=== PATIENT | male | born 1995 | race Caucasian/White ===

== ENCOUNTER 2018-09-01 06:57 | Emergency (ER) | payer OTHER ==
[~2018-09-01 06:57] MED LIST: ALBUTEROL0.09 MG/A2 IH; ALBUTEROL0.09 MG/A2 INH; ALLOPURINOL100 MG PO; ANUSOL-HC25 MG RC; ATARAX25 MG PO; BENADRYL12.5 MG/5 PO; BENADRYL25 MG PO; BENTYL10 MG PO; CLEOCIN150 MG PO; DIFLUCAN150 MG PO; DOXYCYCLINE100 M2 PO; EPI-PEN JR0.5 MG/ML MR; EPIPEN 2-PAK1 MG/ML MR; EPIPEN JR 20.5 MG/ML MR; FLEXERIL10 MG PO; HYDROCODONE BIT1 T11 PO; IBU-6600 MG PO; KETOROLAC10 MG PO; LIDEX 0.05% GEL60 GM PO; LOMOTIL 0.025 M1 TAB PO; MEDROL DOSEPAK4 MG PO; MILLIPRED5 MG PO; MOTRIN400 MG PO; MOTRIN600 MG PO; MOTRIN800 MG PO; NAPROXEN220 MG PO; PHENERGAN12.5 M1 PO; PREDNICOT20 MG PO; PREVACID30 M1 PO; PRILOSEC40 MG PO; ROBITUSSIN-AC480 ML PO; SEPTRA DS 800 M1 TAB PO; SINGULAIR10 M1 PO; SINGULAIR10 MG PO; TOPAMAX25 M1 PO; TOPAMAX25 M3 PO; TORADOL10 MG PO; TORADOL60 MG/2 ML PO; TRAMADOL HCL50 MG PO; TRAMADOL50 MG PO; TYLENOL W/CODEI1 TA2 PO; ULTRAM50 MG PO; VITAMIN D5000 UNIT PO; ZANTAC 150150 MG PO; ZANTAC150 MG PO; ZITHROMAX Z PA250 MG PO; ZITHROMAX250 MG PO; ZOFRAN ODT4 MG SL; Zofran4 MG PO
[2018-09-01] MEDS ORDERED: ZOFRAN4 MG PO (07:35)
== END 2018-09-01 07:35 | disposition home or self-care (01) ==
LOC: ED 06:57
DX: R11.2 Nausea with vomiting, unspecified (principal); K30 Functional dyspepsia; Z88.0 Allergy status to penicillin; Z91.013 Allergy to seafood; Z91.018 Allergy to other foods; Z91.041 Radiographic dye allergy status; Z91.030 Bee allergy status; Z79.899 Other long term (current) drug therapy

== ENCOUNTER 2019-03-16 12:39 | Emergency (ER) | payer OTHER ==
[~2019-03-16] VITALS: Ht 182.8 cm; Wt 102.1 kg
[~2019-03-16 12:39] MED LIST changes: +ZOFRAN4 MG PO
[2019-03-16 13:17] LABS: BASO % 0.5 % (0.0-1.0); EOS # 0.2 10*3/uL (0.0-0.4); EOS % 2.5 % (1.0-4.0); HEMATOCRIT 47.2 % (42.0-52.0); HEMOGLOBIN 15.7 g/dl (14.0-18.0); LYMPH # 2.7 10*3/uL (1.3-4.4); LYMPH % 33.8 % (27.0-41.0); MEAN CELL VOLUME 90.9 fl (80.0-94.0); MEAN CORPUSCULAR HGB 30.3 pg (27.0-31.0); MEAN CORPUSCULAR HGB CONC 33.3 g/dl (33.0-37.0); MEAN PLATELET VOLUME 11.9 fl (9.6-12.3); MONO # 0.6 10*3/uL (0.1-1.0); MONO % 7.2 % (3.0-9.0); NEUT # 4.5 10*3/uL (2.3-7.9); NEUT % 55.8 % (47.0-73.0); PLATELET COUNT AUTOMATED 250 10*3/uL (130-400); RED BLOOD COUNT 5.19 10*6/uL (4.50-5.90); RED CELL DISTRI WIDTH 12.1 % (0-14.5); WHITE BLOOD COUNT 8.1 10*3/uL (4.8-10.8)
[2019-03-16 13:34] LABS: ALBUMIN 4.3 gm/dl (3.1-4.5); ALKALINE PHOSPHATASE 65 U/L (45-117); BUN 16 mg/dl (7-24); CHLORIDE 105 mmol/L (98-107); CREATININE 1.06 mg/dL (0.70-1.30); LIPASE 88 U/L (73-393); POTASSIUM 3.8 mmol/L (3.5-5.1); SGOT/AST 14 IU/L (3-35); SGPT/ALT 25 U/L (12-78); SODIUM 139 mmol/L (136-145); TOTAL PROTEIN 7.4 gm/dL (6.4-8.2)
[2019-03-16] MEDS ORDERED: ZOFRAN4 MG PO (13:50)
== END 2019-03-16 13:54 | disposition home or self-care (01) ==
LOC: ED 12:39
PROVIDERS: Nurse Practitioner Family
DX: B34.9 Viral infection, unspecified (principal); J02.9 Acute pharyngitis, unspecified; H92.03 Otalgia, bilateral; R09.89 Other specified symptoms and signs involving the circulatory and respiratory systems; R53.1 Weakness; R11.0 Nausea; R10.9 Unspecified abdominal pain; Z79.899 Other long term (current) drug therapy; Z91.030 Bee allergy status; Z91.041 Radiographic dye allergy status; Z88.0 Allergy status to penicillin; Z91.013 Allergy to seafood; Z91.018 Allergy to other foods

== ENCOUNTER 2019-04-04 12:36 | Emergency (ER) | payer OTHER ==
[~2019-04-04] VITALS: Ht 182.8 cm; Wt 100.2 kg
[2019-04-04] MEDS ORDERED: LEVAQUIN750 M1 PO (13:10)
[2019-04-04] MEDS ORDERED: CLARITIN-D 121 EACH PO (13:10)
== END 2019-04-04 13:16 | disposition home or self-care (01) ==
LOC: ED 12:36
DX: J32.9 Chronic sinusitis, unspecified (principal); Z91.030 Bee allergy status; Z91.041 Radiographic dye allergy status; Z88.0 Allergy status to penicillin; Z91.013 Allergy to seafood; Z91.018 Allergy to other foods; Z79.899 Other long term (current) drug therapy

== ENCOUNTER 2020-01-23 12:10 | Emergency (ER) | payer OTHER ==
[~2020-01-23] VITALS: Ht 182.8 cm; Wt 104.3 kg
[~2020-01-23 12:10] MED LIST changes: +CLARITIN-D 121 EACH PO; +LEVAQUIN750 M1 PO
[2020-01-23 13:12] LABS: BASO % 0.4 % (0.0-1.0); EOS # 0.1 10*3/uL (0.0-0.4); EOS % 0.7 % (1.0-4.0); HEMATOCRIT 46.2 % (42.0-52.0); LYMPH # 2.8 10*3/uL (1.3-4.4); LYMPH % 26.2 % (27.0-41.0); MEAN CORPUSCULAR HGB 29.9 pg (27.0-31.0); MEAN CORPUSCULAR HGB CONC 33.5 g/dl (33.0-37.0); MEAN PLATELET VOLUME 11.1 fl (9.6-12.3); MONO # 0.9 10*3/uL (0.1-1.0); MONO % 8.1 % (3.0-9.0); NEUT # 6.8 10*3/uL (2.3-7.9); NEUT % 64.3 % (47.0-73.0); PLATELET COUNT AUTOMATED 280 10*3/uL (130-400); RED BLOOD COUNT 5.19 10*6/uL (4.50-5.90); WHITE BLOOD COUNT 10.6 10*3/uL (4.8-10.8)
[2020-01-23 13:29] LABS: ALBUMIN 4.3 gm/dl (3.1-4.5); ALKALINE PHOSPHATASE 70 U/L (45-117); BUN 17 mg/dl (7-24); CHLORIDE 107 mmol/L (98-107); CREATININE 0.82 mg/dL (0.70-1.30); LIPASE 60 U/L (73-393); POTASSIUM 4.2 mmol/L (3.5-5.1); SGOT/AST 22 IU/L (3-35); SGPT/ALT 43 U/L (12-78); SODIUM 139 mmol/L (136-145); TOTAL PROTEIN 7.5 gm/dL (6.4-8.2)
== END 2020-01-23 17:00 | disposition home or self-care (01) ==
LOC: ED 12:10
PROVIDERS: Emergency Medicine
DX: K29.70 Gastritis, unspecified, without bleeding (principal); K21.9 Gastro-esophageal reflux disease without esophagitis; Z91.030 Bee allergy status; Z91.041 Radiographic dye allergy status; Z88.0 Allergy status to penicillin; Z91.013 Allergy to seafood; Z91.018 Allergy to other foods; Z79.899 Other long term (current) drug therapy

== ENCOUNTER 2020-03-16 12:07 | Emergency (ER) | payer OTHER ==
[~2020-03-16] VITALS: Ht 779.7 cm; Wt 106.6 kg
[2020-03-16] MEDS ORDERED: Motrin,Rufen800 MG PO (14:25)
== END 2020-03-16 14:36 | disposition home or self-care (01) ==
LOC: ED 12:07
DX: S66.912A Strain of unspecified muscle, fascia and tendon at wrist and hand level, left hand, initial encounter (principal); Z91.030 Bee allergy status; Z91.041 Radiographic dye allergy status; Z88.0 Allergy status to penicillin; Z91.013 Allergy to seafood; Z91.018 Allergy to other foods; Z79.899 Other long term (current) drug therapy; X58.XXXA Exposure to other specified factors, initial encounter; Y93.89 Activity, other specified; Y92.89 Other specified places as the place of occurrence of the external cause; Y99.8 Other external cause status

== ENCOUNTER → 2020-03-26 | Outpatient (CLI) | payer OTHER ==
[~2020-03-26] MED LIST changes: -ALLOPURINOL100 MG PO; +BENTYL PO; +CLARITIN10 MG PO; +Motrin,Rufen800 MG PO; +ZYLOPRIM300 MG PO
--- NOTE | 2020-03-26 09:45 | NUR ---
INFORMED CONSENT OBTAINED FOR STANDARD GXT WITH DR. ABBOTT. RESTING EKG NSR WITH A SUPINE HR OF 65 WITH BP OF 122/80 AND HR OF 67 WITH BP OF 126/78. PT COMPLETED 9:00 OF A YVONNE PROTOCOL WITH COMPLETION OF STAGE III AT 3.4 MPH AND 14% GRADE. REACHED A PEAK HR OF 172 WHICH IS 86% OF PREDICTED MAX AND A PEAK BP OF 190/60. TEST TERMINATED BECAUSE OF FATIGUE. HAD NO EKG CHANGES. IN STAGE II DEVELOPED "SHARP" CENTRAL CHEST DISCOMFORT THAT WAS A 4 ON PAIN SCALE. IN STAGE III DECREASED TO A 2 ON PAIN SCALE. CHEST DISCOMFORT RELIEVED AT 3:00 RECOVERY. HAS AN AVERAGE EXERCISE TOLERANCE. LAST RECOVERY HR OF 100 WITH BP OF 128/74. IV DISCONTINUED AND DISCHARGED IN STABLE CONDITION.
== END | disposition home or self-care (01) ==
LOC: CARD 00:07
PROVIDERS: ATTEND Internal Medicine Cardiovascular Disease
DX: R07.2 Precordial pain (principal)

== ENCOUNTER 2020-10-08 21:28 | Emergency (ER) | payer OTHER ==
[~2020-10-08] VITALS: Ht 182.8 cm; Wt 108.9 kg
[2020-10-08 23:18] LABS: BASO # 0.1 10*3/uL (0.0-0.1); BASO % 0.4 % (0.0-1.0); EOS # 0.4 10*3/uL (0.0-0.4); EOS % 3.3 % (1.0-4.0); HEMATOCRIT 44.5 % (42.0-52.0); LYMPH # 4.2 10*3/uL (1.3-4.4); LYMPH % 34.9 % (27.0-41.0); MEAN CORPUSCULAR HGB CONC 33.7 g/dl (33.0-37.0); MEAN PLATELET VOLUME 11.3 fl (9.6-12.3); MONO % 8.6 % (3.0-9.0); NEUT # 6.3 10*3/uL (2.3-7.9); NEUT % 52.5 % (47.0-73.0); PLATELET COUNT AUTOMATED 314 10*3/uL (130-400); RED CELL DISTRI WIDTH 12.3 % (0-14.5); WHITE BLOOD COUNT 11.9 10*3/uL (4.8-10.8)
[2020-10-08 23:32] LABS: ALBUMIN 3.8 gm/dl (3.1-4.5); ALKALINE PHOSPHATASE 64 U/L (45-117); BUN 15 mg/dl (7-24); CHLORIDE 105 mmol/L (98-107); CREATININE 0.81 mg/dL (0.70-1.30); LIPASE 104 U/L (73-393); POTASSIUM 3.9 mmol/L (3.5-5.1); SGOT/AST 13 IU/L (3-35); SGPT/ALT 34 U/L (12-78); SODIUM 141 mmol/L (136-145)
[2020-10-09] MEDS ORDERED: TYLENOL325 M1 PO (12:01)
[2020-10-09] MEDS ORDERED: IBU800 MG PO (12:01)
== END 2020-10-09 00:16 | disposition home or self-care (01) ==
LOC: ED 21:28
PROVIDERS: Emergency Medicine
DX: R51.9 Headache, unspecified (principal); R11.2 Nausea with vomiting, unspecified; J45.909 Unspecified asthma, uncomplicated; K21.9 Gastro-esophageal reflux disease without esophagitis; Z90.49 Acquired absence of other specified parts of digestive tract; Z91.030 Bee allergy status; Z91.041 Radiographic dye allergy status; Z88.0 Allergy status to penicillin; Z91.013 Allergy to seafood; Z79.899 Other long term (current) drug therapy

== ENCOUNTER 2020-12-20 19:23 | Emergency (ER) | payer OTHER ==
[~2020-12-20] VITALS: Ht 182.8 cm; Wt 117.9 kg
[~2020-12-20 19:23] MED LIST changes: +IBU800 MG PO; +TYLENOL325 M1 PO
== END 2020-12-20 19:56 | disposition home or self-care (01) ==
LOC: ED 19:23
DX: M79.605 Pain in left leg (principal); R10.9 Unspecified abdominal pain; M54.5 Low back pain; Z91.030 Bee allergy status; Z91.041 Radiographic dye allergy status; Z88.0 Allergy status to penicillin; Z91.013 Allergy to seafood; Z91.018 Allergy to other foods; Z79.899 Other long term (current) drug therapy; Z96.22 Myringotomy tube(s) status; Z90.89 Acquired absence of other organs

== ENCOUNTER → 2021-04-09 | Outpatient (CLI) | payer OTHER | END | disposition home or self-care (01) | LOC: COVID19 16:37 | PROVIDERS: ATTEND Family Medicine | DX: Z11.52 Encounter for screening for COVID-19 (principal) ==

== ENCOUNTER 2021-11-12 04:32 | Emergency (ER) | payer OTHER ==
[~2021-11-12] VITALS: Ht 177.8 cm; Wt 105.2 kg
[~2021-11-12 04:32] MED LIST changes: +COLACE100 MG PO; +CYCLOBENZAPRINE10 MG PO; +DICYCLOMINE HCL10 MG PO; +HYDROCODONE-AC1 EAC1 PO; +LEVOFLOXACIN750 M2 PO; +METRONIDAZOLE500 M1 PO; +ONDANSETRON HYDR4 MG PO
[2021-11-12 04:58] LABS: BASO % 0.4 % (0.0-1.0); EOS # 0.2 10*3/uL (0.0-0.4); EOS % 1.9 % (1.0-4.0); HEMATOCRIT 43.7 % (42.0-52.0); LYMPH % 40.3 % (27.0-41.0); MEAN CELL VOLUME 87.1 fl (80.0-94.0); MEAN CORPUSCULAR HGB 29.5 pg (27.0-31.0); MEAN CORPUSCULAR HGB CONC 33.9 g/dl (33.0-37.0); MEAN PLATELET VOLUME 10.4 fl (9.6-12.3); MONO # 0.8 10*3/uL (0.1-1.0); MONO % 8.1 % (3.0-9.0); NEUT # 4.8 10*3/uL (2.3-7.9); NEUT % 48.2 % (47.0-73.0); PLATELET COUNT AUTOMATED 338 10*3/uL (130-400); RED BLOOD COUNT 5.02 10*6/uL (4.50-5.90); RED CELL DISTRI WIDTH 12.3 % (0-14.5); WHITE BLOOD COUNT 9.9 10*3/uL (4.8-10.8)
[2021-11-12 05:15] LABS: BUN 11 mg/dl (7-24); CHLORIDE 106 mmol/L (98-107); CREATININE 0.73 mg/dL (0.70-1.30); POTASSIUM 3.7 mmol/L (3.5-5.1); SODIUM 139 mmol/L (136-145)
[2021-11-12] MEDS ORDERED: METHOCARBAMOL500 M1 PO (05:30)
== END 2021-11-12 05:41 | disposition home or self-care (01) ==
LOC: ED 04:32
PROVIDERS: Internal Medicine
DX: S39.011A Strain of muscle, fascia and tendon of abdomen, initial encounter (principal); Z91.030 Bee allergy status; Z88.0 Allergy status to penicillin; Z91.013 Allergy to seafood; Z91.018 Allergy to other foods; Z91.041 Radiographic dye allergy status; Z79.899 Other long term (current) drug therapy; Z90.49 Acquired absence of other specified parts of digestive tract; Z98.890 Other specified postprocedural states; X58.XXXA Exposure to other specified factors, initial encounter; Y93.89 Activity, other specified; Y92.89 Other specified places as the place of occurrence of the external cause; Y99.8 Other external cause status

== ENCOUNTER 2022-02-07 08:39 | Emergency (ER) | payer OTHER ==
[~2022-02-07] VITALS: Ht 182.8 cm; Wt 111.1 kg
[~2022-02-07 08:39] MED LIST changes: +METHOCARBAMOL500 M1 PO
[2022-02-07] MEDS ORDERED: PREDNISONE10 MG PO ×2 (09:02)
== END 2022-02-07 09:22 | disposition home or self-care (01) ==
LOC: ED 08:39
DX: M94.0 Chondrocostal junction syndrome [Tietze] (principal); Z91.030 Bee allergy status; Z91.041 Radiographic dye allergy status; Z91.013 Allergy to seafood; Z91.018 Allergy to other foods; Z88.0 Allergy status to penicillin; Z79.899 Other long term (current) drug therapy; Z90.89 Acquired absence of other organs; Z90.49 Acquired absence of other specified parts of digestive tract

== ENCOUNTER 2022-02-25 17:14 | Emergency (ER) | payer OTHER ==
[~2022-02-25] VITALS: Ht 182.8 cm; Wt 111.1 kg
[~2022-02-25 17:14] MED LIST changes: +PREDNISONE10 MG PO
[2022-02-25 18:10] LABS: BASO # 0.1 10*3/uL (0.0-0.1); BASO % 0.6 % (0.0-1.0); EOS # 0.3 10*3/uL (0.0-0.4); EOS % 2.6 % (1.0-4.0); HEMATOCRIT 43.1 % (42.0-52.0); LYMPH # 2.9 10*3/uL (1.3-4.4); LYMPH % 30.2 % (27.0-41.0); MEAN CELL VOLUME 87.6 fl (80.0-94.0); MEAN CORPUSCULAR HGB 29.5 pg (27.0-31.0); MEAN CORPUSCULAR HGB CONC 33.6 g/dl (33.0-37.0); MEAN PLATELET VOLUME 11.1 fl (9.6-12.3); MONO # 0.9 10*3/uL (0.1-1.0); NEUT # 5.5 10*3/uL (2.3-7.9); NEUT % 57.4 % (47.0-73.0); PLATELET COUNT AUTOMATED 277 10*3/uL (130-400); RED BLOOD COUNT 4.92 10*6/uL (4.50-5.90); RED CELL DISTRI WIDTH 12.8 % (0-14.5); WHITE BLOOD COUNT 9.6 10*3/uL (4.8-10.8)
[2022-02-25 18:30] LABS: BUN 13 mg/dl (7-24); CHLORIDE 109 mmol/L (98-107); CREATININE 0.86 mg/dL (0.70-1.30); LIPASE 107 U/L (73-393); POTASSIUM 3.8 mmol/L (3.5-5.1); SGOT/AST 25 IU/L (3-35); SGPT/ALT 47 U/L (12-78); SODIUM 142 mmol/L (136-145); TOTAL PROTEIN 6.9 gm/dL (6.4-8.2)
[2022-02-25 18:31] LABS: ALKALINE PHOSPHATASE 66 U/L (45-117)
[2022-02-25] MEDS ORDERED: GOOD NEIGHBOR L10 MG PO (18:44)
[2022-02-25] MEDS ORDERED: VENT7GM INH (18:44)
[2022-02-25] MEDS ORDERED: Carafate1 GM PO (18:44)
[2022-02-25] MEDS ORDERED: OMEPRAZOLE40 MG PO (18:44)
[2022-02-25] MEDS ORDERED: MONTELUKAST SOD10 MG PO (18:44)
[2022-02-25] MEDS ORDERED: ALLOPURINOL300 MG PO (18:45)
[2022-02-25] MEDS ORDERED: PEPCID20 MG PO (19:01)
[2022-02-25] MEDS ORDERED: PANTOPRAZOLE SO20 MG PO (19:01)
== END 2022-02-25 19:06 | disposition home or self-care (01) ==
LOC: ED 17:14
PROVIDERS: Physician Assistant
DX: K21.9 Gastro-esophageal reflux disease without esophagitis (principal); Z91.030 Bee allergy status; Z91.040 Latex allergy status; Z88.0 Allergy status to penicillin; Z91.013 Allergy to seafood; Z91.018 Allergy to other foods; Z79.899 Other long term (current) drug therapy; Z90.49 Acquired absence of other specified parts of digestive tract; Z98.890 Other specified postprocedural states; Z90.89 Acquired absence of other organs

== ENCOUNTER 2022-04-08 23:10 | Emergency (ER) | payer OTHER ==
[~2022-04-08] VITALS: Ht 182.8 cm; Wt 111.1 kg
[~2022-04-08 23:10] MED LIST changes: +ALLOPURINOL300 MG PO; +Carafate1 GM PO; +GOOD NEIGHBOR L10 MG PO; +MONTELUKAST SOD10 MG PO; +OMEPRAZOLE40 MG PO; +PANTOPRAZOLE SO20 MG PO; +PEPCID20 MG PO; +VENT7GM INH
== END 2022-04-09 01:40 | disposition home or self-care (01) ==
LOC: ED 23:10
DX: B34.9 Viral infection, unspecified (principal); Z20.822 Contact with and (suspected) exposure to COVID-19; Z91.030 Bee allergy status; Z91.041 Radiographic dye allergy status; Z88.0 Allergy status to penicillin; Z91.013 Allergy to seafood; Z91.018 Allergy to other foods; Z79.899 Other long term (current) drug therapy; Z90.49 Acquired absence of other specified parts of digestive tract; Z98.890 Other specified postprocedural states; Z90.89 Acquired absence of other organs; Z96.22 Myringotomy tube(s) status

== ENCOUNTER 2022-06-12 18:02 | Emergency (ER) | payer OTHER ==
[~2022-06-12] VITALS: Ht 182.8 cm; Wt 111.1 kg
== END 2022-06-12 21:06 | disposition home or self-care (01) ==
LOC: ED 18:02
DX: B34.9 Viral infection, unspecified (principal); Z20.822 Contact with and (suspected) exposure to COVID-19; Z91.030 Bee allergy status; Z91.041 Radiographic dye allergy status; Z88.0 Allergy status to penicillin; Z91.013 Allergy to seafood; Z91.018 Allergy to other foods; Z79.899 Other long term (current) drug therapy; Z90.49 Acquired absence of other specified parts of digestive tract; Z90.89 Acquired absence of other organs; Z98.890 Other specified postprocedural states

== ENCOUNTER → 2022-06-17 | Outpatient (CLI) | payer OTHER ==
[2022-06-17 10:08] LABS: HEMATOCRIT 45.5 % (42.0-52.0); MEAN CELL VOLUME 88.9 fl (80.0-94.0); MEAN CORPUSCULAR HGB 29.7 pg (27.0-31.0); MEAN CORPUSCULAR HGB CONC 33.4 g/dl (33.0-37.0); PLATELET COUNT AUTOMATED 302 10*3/uL (130-400); RED BLOOD COUNT 5.12 10*6/uL (4.50-5.90); RED CELL DISTRI WIDTH 12.3 % (0-14.5); RETICULOCYTE % 1.69 % (0.50-2.50); WHITE BLOOD COUNT 10.6 10*3/uL (4.8-10.8)
[2022-06-17 10:24] LABS: BILIRUBIN Negative (Negative); BLOOD Negative (Negative); CLARITY Clear (Clear); COLOR Yellow (Yellow); GLUCOSE Negative (Negative); KETONE Negative (Negative); LEUKO ESTERASE Negative (Negative); NITRITE Negative (Negative); PH 6.5 (4.5-8.0); SPECIFIC GRAVITY 1.015 (1.001-1.030); UROBILINOGEN 0.2 E.U./dl (0.0-1.0)
[2022-06-17 10:38] LABS: RBC 0-2 rbc/hpf (0-2); WBC 0-2 wbc/hpf (0-5)
[2022-06-17 10:39] LABS: EPITHELIAL CELLS 0-2
[2022-06-17 10:51] LABS: TOTAL CELLS COUNTED 100 #CELLS
[2022-06-17 10:52] LABS: PLATELET SUFFICIENCY NORMAL (NORMAL)
[2022-06-17 11:35] LABS: VITAMIN D, 25-HYDROXY 20.2 ng/mL (30-100)
[2022-06-17 15:19] LABS: ALKALINE PHOSPHATASE 66 U/L (46-116); GAMMA GLUTAMYL TRANSPEPTIDASE 34 U/L (0-73); SGPT/ALT 43 U/L (10-49); T3 UPTAKE 1.4 % (22.4-36.7); THYROXINE (T4) TOTAL 7.7 ug/dl (4.5-10.9); TOTAL PROTEIN 6.8 gm/dL (6.0-8.0)
[2022-06-17 15:20] LABS: BUN 17 mg/dl (9-23); CHLORIDE 101 mmol/L (98-107); CREATININE 0.81 mg/dL (0.70-1.30); POTASSIUM 4.3 mmol/L (3.4-5.1); SODIUM 138 mmol/L (136-145); THYROID STIM HORMONE (HS) 2.759 uIU/ml (0.550-4.780)
[2022-06-17 15:21] LABS: CHOLESTEROL 163 mg/dL (<200); LDL CHOLESTEROL 87 mg/dL (9-159); TRIGLYCERIDES 135 mg/dl (<150)
[2022-06-18 03:04] LABS: TOTAL PROTEIN, SERUM 6.7 g/dL (6.0-8.5)
[2022-06-18 12:04] LABS: A/G RATIO 1.4 (0.7-1.7); ALBUMIN 3.9 g/dL (2.9-4.4); ALPHA-1-GLOBULIN 0.2 g/dL (0.0-0.4); ALPHA-2-GLOBULIN 0.7 g/dL (0.4-1.0); BETA GLOBULIN 1.1 g/dL (0.7-1.3); GAMMA GLOBULIN 0.8 g/dL (0.4-1.8); GLOBULIN, TOTAL 2.8 g/dL (2.2-3.9); M-SPIKE Not Observed g/dL (Not Observed)
[2022-06-18 12:04] LABS: ANTI-DSDNA ANTIBODIES 1 IU/mL (0-9)
== END | disposition home or self-care (01) ==
LOC: LAB 09:30
PROVIDERS: ATTEND Family Medicine
DX: R79.89 Other specified abnormal findings of blood chemistry (principal); R53.83 Other fatigue; E78.5 Hyperlipidemia, unspecified; E55.9 Vitamin D deficiency, unspecified

== ENCOUNTER 2022-08-06 15:21 | Emergency (ER) | payer OTHER ==
[~2022-08-06] VITALS: Wt 113.9 kg
== END 2022-08-06 16:59 | disposition home or self-care (01) ==
LOC: ED 15:21
DX: S46.212A Strain of muscle, fascia and tendon of other parts of biceps, left arm, initial encounter (principal); Z90.89 Acquired absence of other organs; Z90.49 Acquired absence of other specified parts of digestive tract; Z98.890 Other specified postprocedural states; Z79.899 Other long term (current) drug therapy; Z88.0 Allergy status to penicillin; Z91.041 Radiographic dye allergy status; Z91.018 Allergy to other foods; Z91.013 Allergy to seafood; Z91.030 Bee allergy status; X50.0XXA Overexertion from strenuous movement or load, initial encounter; Y93.89 Activity, other specified; Y92.89 Other specified places as the place of occurrence of the external cause; Y99.8 Other external cause status

== ENCOUNTER → 2022-08-20 | Outpatient (CLI) | payer OTHER | END | disposition home or self-care (01) | LOC: MRI 01:27 | PROVIDERS: ATTEND Orthopaedic Surgery | DX: S46.212A Strain of muscle, fascia and tendon of other parts of biceps, left arm, initial encounter (principal); M75.22 Bicipital tendinitis, left shoulder; X58.XXXA Exposure to other specified factors, initial encounter; Y93.89 Activity, other specified; Y92.89 Other specified places as the place of occurrence of the external cause; Y99.8 Other external cause status ==

== ENCOUNTER → 2022-09-11 | Outpatient (CLI) | payer OTHER | END | disposition home or self-care (01) | LOC: US 01:06 | PROVIDERS: ATTEND Family Medicine | DX: R10.2 Pelvic and perineal pain (principal); R10.821 Right upper quadrant rebound abdominal tenderness ==

== ENCOUNTER → 2022-09-18 | Outpatient (CLI) | payer OTHER | END | disposition home or self-care (01) | LOC: MRI 01:07 | PROVIDERS: ATTEND Orthopaedic Surgery | DX: S46.212A Strain of muscle, fascia and tendon of other parts of biceps, left arm, initial encounter (principal); M25.822 Other specified joint disorders, left elbow; X58.XXXA Exposure to other specified factors, initial encounter; Y93.89 Activity, other specified; Y92.89 Other specified places as the place of occurrence of the external cause; Y99.8 Other external cause status ==

== ENCOUNTER → 2022-09-23 | Outpatient (CLI) | payer OTHER | END | disposition home or self-care (01) | LOC: CT 00:27 | PROVIDERS: ATTEND Family Medicine | DX: K76.0 Fatty (change of) liver, not elsewhere classified (principal); R59.0 Localized enlarged lymph nodes; R10.84 Generalized abdominal pain; R10.2 Pelvic and perineal pain; Z90.49 Acquired absence of other specified parts of digestive tract ==

== ENCOUNTER 2022-11-10 12:42 | Emergency (ER) | payer OTHER ==
[~2022-11-10] VITALS: Ht 182.8 cm; Wt 120.2 kg
[2022-11-10] MEDS ORDERED: ARIPIPRAZOLE5 MG PO (13:12)
[2022-11-10] MEDS ORDERED: FAMOTIDINE40 MG PO (13:12)
[2022-11-10] MEDS ORDERED: ONDANSETRON HYDR4 MG PO (13:12)
[2022-11-10] MEDS ORDERED: BUSPIRONE HCL10 MG PO (13:13)
[2022-11-10] MEDS ORDERED: SERTRALINE HYD100 MG PO (13:13)
[2022-11-10 15:02] LABS: BASO # 0.1 10*3/uL (0.0-0.1); BASO % 0.4 % (0.0-1.0); EOS # 0.1 10*3/uL (0.0-0.4); EOS % 0.4 % (1.0-4.0); HEMATOCRIT 47.2 % (42.0-52.0); LYMPH % 21.6 % (27.0-41.0); MEAN CELL VOLUME 89.1 fl (80.0-94.0); MEAN CORPUSCULAR HGB CONC 33.7 g/dl (33.0-37.0); MEAN PLATELET VOLUME 10.8 fl (9.6-12.3); MONO # 0.8 10*3/uL (0.1-1.0); MONO % 5.4 % (3.0-9.0); NEUT # 10.1 10*3/uL (2.3-7.9); NEUT % 71.8 % (47.0-73.0); PLATELET COUNT AUTOMATED 316 10*3/uL (130-400); RED CELL DISTRI WIDTH 12.1 % (0-14.5); WHITE BLOOD COUNT 14.1 10*3/uL (4.8-10.8)
[2022-11-10 15:35] LABS: ALKALINE PHOSPHATASE 59 U/L (46-116); BUN 8 mg/dl (9-23); CHLORIDE 104 mmol/L (98-107); POTASSIUM 4.3 mmol/L (3.4-5.1); SGPT/ALT 41 U/L (10-49); TOTAL PROTEIN 7.2 gm/dL (6.0-8.0)
[2022-11-10 18:04] LABS: BILIRUBIN Negative (Negative); BLOOD Trace-Intact (Negative); CLARITY Cloudy (Clear); COLOR Yellow (Yellow); GLUCOSE Negative (Negative); KETONE Negative (Negative); LEUKO ESTERASE Negative (Negative); NITRITE Negative (Negative); PH 7.5 (4.5-8.0)
[2022-11-10 18:34] LABS: RBC 0-2 rbc/hpf (0-2); WBC 0-2 wbc/hpf (0-5)
[2022-11-10] MEDS ORDERED: PROCTOFOAM15 GM T (19:43)
== END 2022-11-10 20:18 | disposition home or self-care (01) ==
LOC: ED 12:42
PROVIDERS: Physician Assistant
DX: K64.4 Residual hemorrhoidal skin tags (principal); Z90.49 Acquired absence of other specified parts of digestive tract; Z90.89 Acquired absence of other organs; Z98.890 Other specified postprocedural states; Z79.899 Other long term (current) drug therapy; Z91.030 Bee allergy status; Z91.041 Radiographic dye allergy status; Z88.0 Allergy status to penicillin; Z91.018 Allergy to other foods; Z91.013 Allergy to seafood

== ENCOUNTER 2022-12-25 13:56 | Emergency (ER) | payer OTHER ==
[~2022-12-25] VITALS: Wt 117.9 kg
[~2022-12-25 13:56] MED LIST changes: +ARIPIPRAZOLE5 MG PO; +BUSPIRONE HCL10 MG PO; +FAMOTIDINE40 MG PO; +PROCTOFOAM15 GM T; +SERTRALINE HYD100 MG PO
[2022-12-25 17:44] LABS: BASO # 0.1 10*3/uL (0.0-0.1); BASO % 0.5 % (0.0-1.0); EOS # 0.3 10*3/uL (0.0-0.4); EOS % 2.3 % (1.0-4.0); LYMPH # 3.6 10*3/uL (1.3-4.4); MEAN CELL VOLUME 89.8 fl (80.0-94.0); MEAN CORPUSCULAR HGB 29.7 pg (27.0-31.0); MONO # 0.9 10*3/uL (0.1-1.0); MONO % 8.2 % (3.0-9.0); NEUT # 6.3 10*3/uL (2.3-7.9); NEUT % 56.6 % (47.0-73.0); PLATELET COUNT AUTOMATED 303 10*3/uL (130-400); RED BLOOD COUNT 5.12 10*6/uL (4.50-5.90); WHITE BLOOD COUNT 11.1 10*3/uL (4.8-10.8)
[2022-12-25 18:06] LABS: ALKALINE PHOSPHATASE 65 U/L (46-116); BUN 12 mg/dl (9-23); CHLORIDE 107 mmol/L (98-107); SGPT/ALT 42 U/L (10-49); TOTAL PROTEIN 7.3 gm/dL (6.0-8.0)
[2022-12-25 18:27] LABS: BILIRUBIN Negative (Negative); BLOOD Negative (Negative); CLARITY Clear (Clear); COLOR Yellow (Yellow); GLUCOSE Negative (Negative); KETONE Negative (Negative); LEUKO ESTERASE Negative (Negative); NITRITE Negative (Negative); PH 7.5 (4.5-8.0); UROBILINOGEN 0.2 E.U./dl (0.0-1.0)
[2022-12-25 18:48] LABS: MUCOUS 2+; RBC 0-2 rbc/hpf (0-2); WBC 0-2 wbc/hpf (0-5)
[2022-12-25] MEDS ORDERED: CLINDAMYCIN HC300 MG PO (19:31)
== END 2022-12-25 19:46 | disposition home or self-care (01) ==
LOC: ED 13:56
PROVIDERS: Emergency Medicine
DX: I88.0 Nonspecific mesenteric lymphadenitis (principal); R10.32 Left lower quadrant pain; R19.7 Diarrhea, unspecified; J45.909 Unspecified asthma, uncomplicated; G43.909 Migraine, unspecified, not intractable, without status migrainosus; K21.9 Gastro-esophageal reflux disease without esophagitis; M10.9 Gout, unspecified; Z91.030 Bee allergy status; Z91.041 Radiographic dye allergy status; Z88.0 Allergy status to penicillin; Z91.013 Allergy to seafood; Z91.018 Allergy to other foods; Z90.49 Acquired absence of other specified parts of digestive tract; Z98.890 Other specified postprocedural states; Z90.89 Acquired absence of other organs

== ENCOUNTER → 2023-05-03 | Outpatient (CLI) | payer OTHER ==
[~2023-05-03] MED LIST changes: +CLINDAMYCIN HC300 MG PO
[2023-05-03 10:39] LABS: BILIRUBIN Negative (Negative); BLOOD Negative (Negative); CLARITY Clear (Clear); COLOR Yellow (Yellow); GLUCOSE Negative (Negative); KETONE Negative (Negative); LEUKO ESTERASE Negative (Negative); NITRITE Negative (Negative); SPECIFIC GRAVITY 1.015 (1.001-1.030); UROBILINOGEN 0.2 E.U./dl (0.0-1.0)
[2023-05-03 10:41] LABS: BASO # 0.1 10*3/uL (0.0-0.1); BASO % 0.8 % (0.0-1.0); EOS # 0.2 10*3/uL (0.0-0.4); EOS % 2.4 % (1.0-4.0); HEMATOCRIT 47.1 % (42.0-52.0); LYMPH # 3.4 10*3/uL (1.3-4.4); LYMPH % 38.6 % (27.0-41.0); MEAN CELL VOLUME 90.6 fl (80.0-94.0); MEAN CORPUSCULAR HGB 29.6 pg (27.0-31.0); MEAN CORPUSCULAR HGB CONC 32.7 g/dl (33.0-37.0); MEAN PLATELET VOLUME 11.7 fl (9.6-12.3); MONO # 0.8 10*3/uL (0.1-1.0); MONO % 9.1 % (3.0-9.0); NEUT # 4.3 10*3/uL (2.3-7.9); NEUT % 48.9 % (47.0-73.0); PLATELET COUNT AUTOMATED 325 10*3/uL (130-400); RED CELL DISTRI WIDTH 12.3 % (0-14.5); RETICULOCYTE % 1.23 % (0.50-2.50); WHITE BLOOD COUNT 8.9 10*3/uL (4.8-10.8)
[2023-05-03 10:52] LABS: BACTERIA TRACE; MUCOUS TRACE; WBC 0-2 wbc/hpf (0-5)
[2023-05-03 11:02] LABS: ALKALINE PHOSPHATASE 74 U/L (46-116); BUN 11 mg/dl (9-23); CHLORIDE 107 mmol/L (98-107); CHOLESTEROL 142 mg/dL (<200); GAMMA GLUTAMYL TRANSPEPTIDASE 33 U/L (0-73); LDL CHOLESTEROL 84 mg/dL (9-159); POTASSIUM 4.3 mmol/L (3.4-5.1); SGPT/ALT 36 U/L (10-49); T3 UPTAKE 26.1 % (22.4-36.7); THYROXINE (T4) TOTAL 6.8 ug/dl (4.5-10.9); TRIGLYCERIDES 98 mg/dl (<150); URIC ACID 6.9 mg/dL (3.7-9.2)
[2023-05-03 11:22] LABS: VITAMIN D, 25-HYDROXY 37.7 ng/mL (30-100)
[2023-05-04 14:08] LABS: t-TRANSGLUTAMINASE (tTG) IGA <2 U/mL (0-3); t-TRANSGLUTAMINASE (tTG) IgG <2 U/mL (0-5)
== END | disposition home or self-care (01) ==
LOC: LAB 09:52
PROVIDERS: Family Medicine; ATTEND Nurse Practitioner Family
DX: E55.9 Vitamin D deficiency, unspecified (principal); R79.89 Other specified abnormal findings of blood chemistry; R53.83 Other fatigue; E78.5 Hyperlipidemia, unspecified

== ENCOUNTER 2023-06-28 09:08 | Emergency (ER) | payer OTHER ==
[~2023-06-28] VITALS: Ht 182.8 cm; Wt 113.4 kg
[2023-06-28] MEDS ORDERED: PANTOPRAZOLE SO40 MG PO (09:33)
[2023-06-28 10:10] LABS: HEMATOCRIT 49.2 % (42.0-52.0); MANUAL DIFF REFLEX YES; MEAN CELL VOLUME 87.4 fl (80.0-94.0); MEAN CORPUSCULAR HGB 29.7 pg (27.0-31.0); MEAN CORPUSCULAR HGB CONC 33.9 g/dl (33.0-37.0); PLATELET COUNT AUTOMATED 323 10*3/uL (130-400); RED BLOOD COUNT 5.63 10*6/uL (4.50-5.90); RED CELL DISTRI WIDTH 12.4 % (0-14.5); WHITE BLOOD COUNT 19.5 10*3/uL (4.8-10.8)
[2023-06-28 10:27] LABS: TOTAL CELLS COUNTED 100 #CELLS
[2023-06-28 10:28] LABS: PLATELET SUFFICIENCY NORMAL (NORMAL)
[2023-06-28 10:32] LABS: ALKALINE PHOSPHATASE 61 U/L (46-116); BUN 14 mg/dl (9-23); CHLORIDE 101 mmol/L (98-107); LIPASE 26 U/L (12-53); POTASSIUM 4.3 mmol/L (3.4-5.1); SGPT/ALT 61 U/L (5-49); TOTAL PROTEIN 7.3 gm/dL (6.0-8.0)
[2023-06-28] MEDS ORDERED: PROMETHAZINE25 M1 PO (12:09)
== END 2023-06-28 12:10 | disposition home or self-care (01) ==
LOC: ED 09:08
PROVIDERS: Family Medicine
DX: K52.9 Noninfective gastroenteritis and colitis, unspecified (principal); R11.2 Nausea with vomiting, unspecified; F17.210 Nicotine dependence, cigarettes, uncomplicated; Z90.49 Acquired absence of other specified parts of digestive tract; Z91.030 Bee allergy status; Z91.041 Radiographic dye allergy status; Z88.0 Allergy status to penicillin; Z91.013 Allergy to seafood; Z91.018 Allergy to other foods; Z79.899 Other long term (current) drug therapy; Z90.89 Acquired absence of other organs; Z96.22 Myringotomy tube(s) status

== ENCOUNTER 2023-09-01 20:32 | Emergency (ER) | payer OTHER ==
[~2023-09-01] VITALS: Ht 182.8 cm; Wt 113.4 kg
[~2023-09-01 20:32] MED LIST changes: +PANTOPRAZOLE SO40 MG PO; +PROMETHAZINE25 M1 PO
[2023-09-01] MEDS ORDERED: hydrOXYzine pamoate 25 MG CAP PO ONE (20:40)
[2023-09-01 21:30] LABS: BASO % 0.4 % (0.0-1.0); EOS # 0.1 10*3/uL (0.0-0.4); EOS % 0.9 % (1.0-4.0); HEMATOCRIT 45.5 % (42.0-52.0); LYMPH # 3.3 10*3/uL (1.3-4.4); LYMPH % 29.2 % (27.0-41.0); MEAN CELL VOLUME 88.5 fl (80.0-94.0); MEAN CORPUSCULAR HGB 29.2 pg (27.0-31.0); MEAN PLATELET VOLUME 11.5 fl (9.6-12.3); MONO # 0.8 10*3/uL (0.1-1.0); MONO % 7.3 % (3.0-9.0); PLATELET COUNT AUTOMATED 307 10*3/uL (130-400); RED BLOOD COUNT 5.14 10*6/uL (4.50-5.90); RED CELL DISTRI WIDTH 12.2 % (0-14.5); WHITE BLOOD COUNT 11.3 10*3/uL (4.8-10.8)
[2023-09-01 21:49] LABS: BUN 9 mg/dl (9-23); CHLORIDE 104 mmol/L (98-107); POTASSIUM 3.7 mmol/L (3.4-5.1)
[2023-09-01] MEDS ORDERED: MG-AL HYDROXIDE/SIMETICONE 30 ML UDC PO STA (22:16)
[2023-09-01] MEDS ORDERED: Dicyclomine Hydrochloride 20 MG/10 ML OSYR PO STA (22:16)
[2023-09-01] MEDS ORDERED: Lidocaine Hydrochloride 15 ML UDC PO STA (22:16)
== END 2023-09-01 23:05 | disposition home or self-care (01) ==
LOC: ED 20:32
PROVIDERS: Physician Assistant Medical
DX: F41.9 Anxiety disorder, unspecified (principal); J45.909 Unspecified asthma, uncomplicated; G43.909 Migraine, unspecified, not intractable, without status migrainosus; K21.9 Gastro-esophageal reflux disease without esophagitis; M10.9 Gout, unspecified; Z91.041 Radiographic dye allergy status; Z91.030 Bee allergy status; Z88.0 Allergy status to penicillin; Z91.013 Allergy to seafood; Z91.018 Allergy to other foods; Z98.890 Other specified postprocedural states; Z90.49 Acquired absence of other specified parts of digestive tract; Z90.89 Acquired absence of other organs

== ENCOUNTER 2023-09-22 08:31 | Emergency (ER) | payer OTHER ==
[~2023-09-22] VITALS: Ht 182.8 cm; Wt 111.1 kg
== END 2023-09-22 11:32 | disposition home or self-care (01) ==
LOC: ED 08:31
DX: S60.221A Contusion of right hand, initial encounter (principal); Z20.822 Contact with and (suspected) exposure to COVID-19; J06.9 Acute upper respiratory infection, unspecified; J45.909 Unspecified asthma, uncomplicated; G43.909 Migraine, unspecified, not intractable, without status migrainosus; K21.9 Gastro-esophageal reflux disease without esophagitis; M10.9 Gout, unspecified; Z91.030 Bee allergy status; Z91.041 Radiographic dye allergy status; Z88.0 Allergy status to penicillin; Z91.013 Allergy to seafood; Z91.018 Allergy to other foods; Z90.49 Acquired absence of other specified parts of digestive tract; Z98.890 Other specified postprocedural states; Z90.89 Acquired absence of other organs; W22.8XXA Striking against or struck by other objects, initial encounter; Y93.89 Activity, other specified; Y92.89 Other specified places as the place of occurrence of the external cause; Y99.8 Other external cause status

== ENCOUNTER → 2023-09-23 | Outpatient (CLI) | payer OTHER | END | disposition home or self-care (01) | LOC: RAD 10:18 | PROVIDERS: ATTEND Family Medicine | DX: S60.211A Contusion of right wrist, initial encounter (principal); S63.91XA Sprain of unspecified part of right wrist and hand, initial encounter; R60.9 Edema, unspecified; R52 Pain, unspecified; X58.XXXA Exposure to other specified factors, initial encounter; Y93.89 Activity, other specified; Y92.89 Other specified places as the place of occurrence of the external cause; Y99.8 Other external cause status ==

== ENCOUNTER 2023-12-21 14:42 | Emergency (ER) | payer OTHER ==
[~2023-12-21] VITALS: Ht 182.8 cm; Wt 111.1 kg
[2023-12-21] MEDS ORDERED: Lactated Ringer's Solution 1,000 ML IV SCH (15:30)
[2023-12-21 15:54] LABS: BASO % 0.4 % (0.0-1.0); EOS # 0.1 10*3/uL (0.0-0.4); EOS % 1.4 % (1.0-4.0); HEMATOCRIT 44.5 % (42.0-52.0); LYMPH # 3.2 10*3/uL (1.3-4.4); LYMPH % 34.6 % (27.0-41.0); MEAN CELL VOLUME 88.6 fl (80.0-94.0); MEAN CORPUSCULAR HGB 29.7 pg (27.0-31.0); MEAN CORPUSCULAR HGB CONC 33.5 g/dl (33.0-37.0); MEAN PLATELET VOLUME 11.3 fl (9.6-12.3); MONO # 0.8 10*3/uL (0.1-1.0); MONO % 8.8 % (3.0-9.0); NEUT # 5.1 10*3/uL (2.3-7.9); NEUT % 54.4 % (47.0-73.0); PLATELET COUNT AUTOMATED 309 10*3/uL (130-400); RED BLOOD COUNT 5.02 10*6/uL (4.50-5.90); RED CELL DISTRI WIDTH 12.2 % (0-14.5); WHITE BLOOD COUNT 9.4 10*3/uL (4.8-10.8)
[2023-12-21 16:22] LABS: ALKALINE PHOSPHATASE 62 U/L (46-116); BUN 13 mg/dl (9-23); CHLORIDE 105 mmol/L (98-107); LIPASE 36 U/L (12-53); SGPT/ALT 29 U/L (5-49); TOTAL PROTEIN 7.1 gm/dL (6.0-8.0)
[2023-12-21 16:28] LABS: BILIRUBIN Negative (Negative); BLOOD Negative (Negative); CLARITY Clear (Clear); COLOR Yellow (Yellow); GLUCOSE Negative (Negative); KETONE Negative (Negative); LEUKO ESTERASE Negative (Negative); NITRITE Negative (Negative); PH 6.5 (4.5-8.0); SPECIFIC GRAVITY 1.025 (1.001-1.030)
[2023-12-21] MEDS ORDERED: Ondansetron Hydrochloride 4 MG/2 ML VIAL IV ONE (16:40)
[2023-12-21 16:45] LABS: EPITHELIAL CELLS 0-2; RBC 0-2 rbc/hpf (0-2); WBC 0-2 wbc/hpf (0-5)
[2023-12-21] MEDS ORDERED: ONDANSETRON HYDR4 M1 PO (17:05)
== END 2023-12-21 17:53 | disposition home or self-care (01) ==
LOC: ED 14:42
PROVIDERS: Emergency Medicine
DX: R11.2 Nausea with vomiting, unspecified (principal); R19.7 Diarrhea, unspecified; R10.9 Unspecified abdominal pain; Z91.030 Bee allergy status; Z91.041 Radiographic dye allergy status; Z88.0 Allergy status to penicillin; Z91.013 Allergy to seafood; Z91.018 Allergy to other foods; Z79.899 Other long term (current) drug therapy; F41.9 Anxiety disorder, unspecified; J45.909 Unspecified asthma, uncomplicated; K21.9 Gastro-esophageal reflux disease without esophagitis; E66.9 Obesity, unspecified; Z68.30 Body mass index [BMI] 30.0-30.9, adult; Z90.49 Acquired absence of other specified parts of digestive tract; Z90.89 Acquired absence of other organs; Z96.22 Myringotomy tube(s) status

== ENCOUNTER 2024-04-16 14:53 | Emergency (ER) | payer OTHER ==
[~2024-04-16] VITALS: Ht 182.8 cm; Wt 108.9 kg
[~2024-04-16 14:53] MED LIST changes: +ONDANSETRON HYDR4 M1 PO
[2024-04-16 17:09] LABS: BASO # 0.1 10*3/uL (0.0-0.1); BASO % 0.5 % (0.0-1.0); EOS # 0.1 10*3/uL (0.0-0.4); EOS % 1.4 % (1.0-4.0); HEMATOCRIT 45.1 % (42.0-52.0); LYMPH # 3.8 10*3/uL (1.3-4.4); LYMPH % 38.6 % (27.0-41.0); MEAN CELL VOLUME 89.1 fl (80.0-94.0); MEAN CORPUSCULAR HGB 30.2 pg (27.0-31.0); MEAN CORPUSCULAR HGB CONC 33.9 g/dl (33.0-37.0); MEAN PLATELET VOLUME 11.1 fl (9.6-12.3); MONO # 0.8 10*3/uL (0.1-1.0); MONO % 7.7 % (3.0-9.0); NEUT % 51.5 % (47.0-73.0); PLATELET COUNT AUTOMATED 313 10*3/uL (130-400); RED BLOOD COUNT 5.06 10*6/uL (4.50-5.90); RED CELL DISTRI WIDTH 12.6 % (0-14.5); WHITE BLOOD COUNT 9.7 10*3/uL (4.8-10.8)
[2024-04-16 17:27] LABS: ALKALINE PHOSPHATASE 58 U/L (46-116); BUN 12 mg/dl (9-23); CHLORIDE 105 mmol/L (98-107); LIPASE 31 U/L (12-53); POTASSIUM 4.2 mmol/L (3.4-5.1); SGPT/ALT 25 U/L (5-49)
[2024-04-16] MEDS ORDERED: ANUSOL-HC25 MG R (17:35)
== END 2024-04-16 17:46 | disposition home or self-care (01) ==
LOC: ED 14:53
PROVIDERS: Nurse Practitioner Family
DX: K62.5 Hemorrhage of anus and rectum (principal); F41.9 Anxiety disorder, unspecified; J45.909 Unspecified asthma, uncomplicated; K21.9 Gastro-esophageal reflux disease without esophagitis; M10.9 Gout, unspecified; G43.909 Migraine, unspecified, not intractable, without status migrainosus; Z91.030 Bee allergy status; Z91.041 Radiographic dye allergy status; Z91.013 Allergy to seafood; Z88.0 Allergy status to penicillin; Z91.018 Allergy to other foods; Z90.49 Acquired absence of other specified parts of digestive tract; Z98.890 Other specified postprocedural states; Z90.89 Acquired absence of other organs

== ENCOUNTER 2024-05-15 03:12 | Emergency (ER) | payer OTHER ==
[~2024-05-15] VITALS: Ht 182.8 cm; Wt 106.6 kg
[~2024-05-15 03:12] MED LIST changes: +ANUSOL-HC25 MG R
[2024-05-15] MEDS ORDERED: MEDROL DOSEPAK4 MG PO (03:55)
[2024-05-15] MEDS ORDERED: ACETAMINOPHEN 325 MG TAB PO ONE (03:55)
[2024-05-15] MEDS ORDERED: Ondansetron Hydrochloride 4 MG TAB SL ONE (04:05)
== END 2024-05-15 04:13 | disposition home or self-care (01) ==
LOC: ED 03:12
DX: B34.9 Viral infection, unspecified (principal); J45.909 Unspecified asthma, uncomplicated; G43.909 Migraine, unspecified, not intractable, without status migrainosus; K21.9 Gastro-esophageal reflux disease without esophagitis; M10.9 Gout, unspecified; Z91.030 Bee allergy status; Z91.041 Radiographic dye allergy status; Z88.0 Allergy status to penicillin; Z91.013 Allergy to seafood; Z91.018 Allergy to other foods; Z98.890 Other specified postprocedural states; Z90.49 Acquired absence of other specified parts of digestive tract; Z90.89 Acquired absence of other organs

== ENCOUNTER → 2024-10-23 | Outpatient (CLI) | payer OTHER ==
[2024-10-23 11:12] LABS: BASO % 0.4 % (0.0-1.0); EOS # 0.2 10*3/uL (0.0-0.4); EOS % 1.8 % (1.0-4.0); HEMATOCRIT 46.9 % (42.0-52.0); MEAN CELL VOLUME 88.3 fl (80.0-94.0); MEAN CORPUSCULAR HGB 29.6 pg (27.0-31.0); MEAN CORPUSCULAR HGB CONC 33.5 g/dl (33.0-37.0); MEAN PLATELET VOLUME 10.7 fl (9.6-12.3); MONO # 0.7 10*3/uL (0.1-1.0); MONO % 7.5 % (3.0-9.0); NEUT # 5.3 10*3/uL (2.3-7.9); NEUT % 56.6 % (47.0-73.0); PLATELET COUNT AUTOMATED 303 10*3/uL (130-400); RED BLOOD COUNT 5.31 10*6/uL (4.50-5.90); RED CELL DISTRI WIDTH 11.9 % (0-14.5); WHITE BLOOD COUNT 9.3 10*3/uL (4.8-10.8)
[2024-10-23 11:44] LABS: ALKALINE PHOSPHATASE 65 U/L (46-116); BUN 14 mg/dl (9-23); CHLORIDE 105 mmol/L (98-107); FREE T4 1.09 ng/dl (0.89-1.76); SGPT/ALT 37 U/L (5-49); T3 UPTAKE 28.3 % (22.4-36.7); TOTAL PROTEIN 7.2 gm/dL (6.0-8.0)
[2024-10-24 13:07] LABS: t-TRANSGLUTAMINASE (tTG) IGA <2 U/mL (0-3); t-TRANSGLUTAMINASE (tTG) IgG 4 U/mL (0-5)
== END | disposition home or self-care (01) ==
LOC: LAB 10:30
PROVIDERS: ATTEND Specialist
DX: R11.2 Nausea with vomiting, unspecified (principal); R53.82 Chronic fatigue, unspecified; R76.8 Other specified abnormal immunological findings in serum; L50.0 Allergic urticaria; Z91.018 Allergy to other foods; Z91.030 Bee allergy status; Z91.013 Allergy to seafood; R10.9 Unspecified abdominal pain; Z86.2 Personal history of diseases of the blood and blood-forming organs and certain disorders involving the immune mechanism

== ENCOUNTER → 2024-11-07 | Outpatient (CLI) | payer OTHER | END | disposition home or self-care (01) | LOC: RAD 10:18 | PROVIDERS: ATTEND Family Medicine | DX: M62.838 Other muscle spasm (principal); M54.50 Low back pain, unspecified; Z98.890 Other specified postprocedural states ==

== ENCOUNTER → 2024-11-10 | Outpatient (CLI) | payer OTHER | END | disposition home or self-care (01) | LOC: LAB 01:05 | PROVIDERS: ATTEND Specialist | DX: L50.0 Allergic urticaria (principal); Z91.030 Bee allergy status ==

== ENCOUNTER 2025-03-27 15:18 | Emergency (ER) | payer OTHER ==
[~2025-03-27] VITALS: Ht 182.8 cm; Wt 111.1 kg
[2025-03-27 18:21] LABS: BASO # 0.1 10*3/uL (0.0-0.1); BASO % 0.6 % (0.0-1.0); EOS # 0.3 10*3/uL (0.0-0.4); EOS % 2.2 % (1.0-4.0); MEAN CELL VOLUME 88.9 fl (80.0-94.0); MEAN CORPUSCULAR HGB 30.2 pg (27.0-31.0); MEAN PLATELET VOLUME 10.8 fl (9.6-12.3); MONO # 1.3 10*3/uL (0.1-1.0); MONO % 11.6 % (3.0-9.0); NEUT # 6.8 10*3/uL (2.3-7.9); NEUT % 60.6 % (47.0-73.0); NUCLEATED RED BLOOD CELL 0.0 % (0.0-0.0); NUCLEATED RED BLOOD CELL 0.0 10*3/uL (0.0-0.0); PLATELET COUNT AUTOMATED 309 10*3/uL (130-400); RED CELL DISTRI WIDTH 12.3 % (0-14.5)
[2025-03-27 18:46] LABS: BUN 10 mg/dl (9-23); SGPT/ALT 49 U/L (5-49)
[2025-03-27] MEDS ORDERED: Dicyclomine Hydrochloride 20 MG/10 ML OSYR PO STA (19:14)
[2025-03-27] MEDS ORDERED: MG-AL HYDROXIDE/SIMETICONE 30 ML UDC PO STA (19:14)
[2025-03-27] MEDS ORDERED: HEARTBURN RELIE20 MG PO (20:48)
== END 2025-03-27 20:57 | disposition home or self-care (01) ==
LOC: ED 15:18
PROVIDERS: Nurse Practitioner Family
DX: K21.9 Gastro-esophageal reflux disease without esophagitis (principal); J45.909 Unspecified asthma, uncomplicated; G43.909 Migraine, unspecified, not intractable, without status migrainosus; Z91.030 Bee allergy status; Z91.041 Radiographic dye allergy status; Z88.0 Allergy status to penicillin; Z91.013 Allergy to seafood; Z91.018 Allergy to other foods; Z79.899 Other long term (current) drug therapy; Z90.49 Acquired absence of other specified parts of digestive tract; Z90.89 Acquired absence of other organs; R07.89 Other chest pain; F41.9 Anxiety disorder, unspecified